=== PATIENT | male | born 1955 | race American Indian/Alaskan Native ===

== ENCOUNTER 2018-01-16 11:13 | Emergency (ER) | payer MEDICAID ==
[2018-01-16 11:33] VITALS: BP 120/86
[2018-01-16 12:51] LABS: Basophils % (Auto) 0.6 % (0.0-1.8); Eosinophils # (Auto) 0.1 K/mm3 (0.0-0.4); Eosinophils % (Auto) 0.8 % (0.0-4.3); Hematocrit 57.1 % (35.5-45.6); Lymphocytes # (Auto) 1.5 K/mm3 (1.2-5.4); Lymphocytes % (Auto) 18.1 % (13.4-35.0); Mean Corpuscular HGB Conc 33 % (32-34); Mean Corpuscular Hemoglobin 32 pg (28-32); Mean Corpuscular Volume 97 fl (84-94); Monocytes # (Auto) 0.6 K/mm3 (0.0-0.8); Monocytes % (Auto) 7.1 % (0.0-7.3); Platelet Count 468 K/mm3 (140-440); Red Cell Distribution Width 14.3 % (13.2-15.2)
[2018-01-16 13:28] LABS: BUN/Creatinine Ratio 12; Blood Urea Nitrogen 13 mg/dL (9-20); Calcium 10.5 mg/dL (8.4-10.2); Hemolysis Index 178
--- NOTE | 2018-01-16 14:43 | XRay Report ---
FINAL REPORT PROCEDURE: XR CHEST ROUTINE 2V TECHNIQUE: PA and lateral chest radiographs were obtained. CPT 33199 HISTORY: sob COMPARISON: No prior studies are available for comparison. FINDINGS: Heart: Normal. Mediastinum/Vessels: Prominent left hilum may be related to vascular prominence or adenopathy. Lungs/Pleural space: No infiltrate, effusion, or pneumothorax. Bony thorax: No acute osseous abnormality. Other: IMPRESSION: Prominent left hilum may be related to vascular prominence or adenopathy. No pulmonary infiltrates are seen.
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
== END 2018-01-16 15:28 | disposition home or self-care (01) ==
LOC: ED 11:13
DX: J20.9 Acute bronchitis, unspecified (principal); J44.9 Chronic obstructive pulmonary disease, unspecified; E11.9 Type 2 diabetes mellitus without complications; F17.200 Nicotine dependence, unspecified, uncomplicated
CPT/HCPCS: 36415; 71046; 80048; 84484; 85025; 93005; 93010; 99284

== ENCOUNTER 2020-08-19 02:09 | Emergency (ER) | payer MEDICARE ==
--- NOTE | 2020-08-19 02:27 | Event Note ---
ED Screening Note Date of service: 08/19/20 Time: :26 ED Screening Note: Patient complains of shortness of breath, headache, and generalized body aches x2 days History of COPD Denies chest pain Left-sided rhonchi noted on exam without wheezing Heart rate noted to be 116 with a pulse ox of 93% on room air This initial assessment/diagnostic orders/clinical plan/treatment(s) is/are subject to change based on patients health status, clinical progression and re- assessment by fellow clinical providers in the ED. Further treatment and workup at subsequent clinical providers discretion. Patient/guardian urged not to elope from the ED as their condition may be serious if not clinically assessed and managed. Initial orders include: Labs EKG Chest x-ray
[2020-08-19] MEDS ORDERED: ALBUTEROL 2.5 MG/3 ML NEBU IH ONE (03:03)
[2020-08-19] MEDS ORDERED: IPRATROPIUM 0.02% NEBU 2.5 ML IH ONE (03:03)
[2020-08-19 03:12] LABS: Basophils % (Auto) 0.2 % (0.0-1.8); Eosinophils % (Auto) 0.1 % (0.0-4.3); Hematocrit 52.2 % (35.5-45.6); Lymphocytes # (Auto) 1.1 K/mm3 (1.2-5.4); Lymphocytes % (Auto) 5.5 % (13.4-35.0); Mean Corpuscular HGB Conc 34 % (32-34); Mean Corpuscular Volume 96 fl (84-94); Monocytes # (Auto) 1.2 K/mm3 (0.0-0.8); Monocytes % (Auto) 5.9 % (0.0-7.3); Platelet Count 263 K/mm3 (140-440); Red Blood Count 5.46 M/mm3 (3.65-5.03); Red Cell Distribution Width 14.1 % (13.2-15.2)
--- NOTE | 2020-08-19 03:32 | XRay Report ---
CHEST 2 VIEWS INDICATION / CLINICAL INFORMATION: shortness of breath. COMPARISON: 01/16/2018 FINDINGS: SUPPORT DEVICES: None. HEART / MEDIASTINUM: No significant abnormality. LUNGS / PLEURA: Moderate emphysema again noted. No significant pulmonary or pleural abnormality. No p neumothorax. ADDITIONAL FINDINGS: No significant additional findings. IMPRESSION: 1. No acute findings. Signer Name: Julian Diaz MD Signed: 08/19/2020 3:28 AM Workstation Name: [id number]
[2020-08-19 03:33] LABS: Alanine Aminotransferase 14 units/L (7-56); BUN/Creatinine Ratio 15; Blood Urea Nitrogen 18 mg/dL (9-20); Calcium 10.4 mg/dL (8.4-10.2); Hemolysis Index 6
[2020-08-19 04:02] VITALS: BP 138/81
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
--- NOTE | 2020-08-19 05:17 | Cat Scan Report ---
CTA CHEST WITH IV CONTRAST INDICATION: sob. TECHNIQUE: Axial CT images were obtained through the chest after injection of 100 cc IV contrast. 3 plane MIP re constructions were produced. All CT scans at this location are performed using CT dose reduction for ALARA by means of automated exposure control. COMPARISON: None available. FINDINGS: Respiratory motion artifact PULMONARY ARTERIES: No pulmonary emboli. THORACIC AORTA: No acute abnormality. HEART: Normal. CORONARY ARTERIES: No significant calcification. PLEURA: No pleural effusion. No pneumothorax. LYMPH NODES: No significant adenopathy. LUNGS: Extensive destructive bullous emphysema No acute air space or interstitial disease. ADDITIONAL FINDINGS: None. UPPER ABDOMEN: No acute findings. SKELETAL STRUCTURES: No significant osseous abnormality. IMPRESSION: 1. No CT evidence for pulmonary embolism. 2. Severe destructive bullous emphysema Signer Name: Julian Diaz MD Signed: 08/19/2020 5:12 AM Workstation Name: [id number]
[2020-08-19 05:20] LABS: Bacteria,Urine 1+ /HPF (Negative); Bilirubin,Urine NEG (Negative); Blood,Urine LG (Negative); Color,Urine Yellow (Yellow); Mucus,Urine 1+ /HPF
[2020-08-19 05:24] LABS: RBC,Urine > 182.0 /HPF (0.0-6.0); WBC,Urine > 182.0 /HPF (0.0-6.0)
== END 2020-08-19 05:41 | disposition home or self-care (01) ==
LOC: ED 02:09
DX: J44.1 Chronic obstructive pulmonary disease with (acute) exacerbation (principal); N39.0 Urinary tract infection, site not specified; E11.9 Type 2 diabetes mellitus without complications; F17.200 Nicotine dependence, unspecified, uncomplicated; Z98.890 Other specified postprocedural states; Z79.899 Other long term (current) drug therapy
CPT/HCPCS: 36415; 71046; 71275; 80053; 81001; 82140; 83880; 84484; 85025; 93005; 94640; 99284; Q9967; 94644

== ENCOUNTER 2021-01-10 20:43 | Inpatient (IN) | payer MEDICARE ==
[2021-01-10] MEDS ORDERED: ALBUTEROL 2.5 MG/3 ML NEBU IH ONE (21:49)
[2021-01-10] MEDS ORDERED: IPRATROPIUM 0.02% NEBU 2.5 ML IH ONE (21:49)
[2021-01-10] MEDS ORDERED: MAGNESIUM SULFATE 2 GM/50 ML BAG IV ONE (21:49)
[2021-01-10] MEDS ORDERED: dexAMETHasone 4 MG/ML VIAL IV ONE (21:50)
[2021-01-10] MEDS ORDERED: AZITHROMYCIN/NS 500 MG/250 ML 500 MG/250 ML BAG IV ONE (21:50)
[2021-01-10] MEDS ORDERED: cefTRIAXone/NS 2 GM/100 ML 2 GM/100 ML BAG IV ONE (21:50)
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
--- NOTE | 2021-01-10 22:33 | XRay Report ---
XR chest 1V ap INDICATION / CLINICAL INFORMATION: Dyspnea. COMPARISON: 08/19/2020 FINDINGS: SUPPORT DEVICES: None. HEART /PULMONARY VASCULATURE: No significant abnormality. LUNGS / PLEURA: Lungs are hyperexpanded but clear. No pneumothorax. ADDITIONAL FINDINGS: No significant additional findings. IMPRESSION: 1. No acute findings. Signer Name: Alex Mckinney MD Signed: 01/10/2021 10:29 PM Workstation Name: [id number]
[2021-01-10 23:03] LABS: Basophils % (Auto) 0.3 % (0.0-1.8); Eosinophils # (Auto) 0.1 K/mm3 (0.0-0.4); Eosinophils % (Auto) 0.9 % (0.0-4.3); Hematocrit 52.7 % (35.5-45.6); Hemoglobin 17.8 gm/dl (11.8-15.2); Lymphocytes % (Auto) 12.5 % (13.4-35.0); Mean Corpuscular HGB Conc 34 % (32-34); Mean Corpuscular Volume 97 fl (84-94); Monocytes # (Auto) 0.5 K/mm3 (0.0-0.8); Platelet Count 244 K/mm3 (140-440); Red Blood Count 5.43 M/mm3 (3.65-5.03); Red Cell Distribution Width 14.8 % (13.2-15.2)
[2021-01-10 23:12] LABS: INR 0.94 (0.87-1.13)
[2021-01-10 23:13] LABS: Partial Thromboplastin Time 31.7 Sec. (24.2-36.6)
[2021-01-11] MEDS ORDERED: SENNOSIDES 8.6 MG TAB PO PRN (00:16)
[2021-01-11] MEDS ORDERED: ACETAMINOPHEN 325 MG TAB PO PRN (00:16)
[2021-01-11] MEDS ORDERED: MAGNESIUM HYDROXIDE (MOM) ORAL LIQD UDC PO PRN (00:16)
[2021-01-11] MEDS ORDERED: ONDANSETRON 4 MG/2 ML INJ IV PRN (00:16)
[2021-01-11] MEDS ORDERED: ALUM-MAG HYDROXIDE-SIMETHICONE 200-200-20MG/5ML ORAL LIQD 30 ML PO PRN (00:16)
--- NOTE | 2021-01-11 00:27 | History and Physical Report ---
History of Present Illness Date of examination: 01/10/21 Date of admission: 01/10/21 Chief complaint: COPD exacerbation History of present illness: Patient is a 66-year-old male who presents emergency room with complaints of shortness of breath, cough and fever. Patient states his symptoms been going on for 3 days. Patient states symptoms are worsening. Patient dates he has a history of COPD. Patient having difficulty breathing. Patient states his shortness of breath and cough are better with rest and worse with exertion. Patient states he has not been vaccinated for COVID-19. Patient denies chest pain. Patient denies abdominal pain. Patient denies nausea vomiting. ED work-up WBC 7.7, platelets 244, hemoglobin 17.8, D-dimer 210, potassium 140, potassium 4.1, creatinine 1.0, hemoglobin 5.9, serum glucose 81, ferritin 204, protein 7.2. Patient seen in ED at bedside patient alert oriented x3. Patient came with respiratory failure requiring oxygen. Patient is on Vapotherm at 35%Oxygen saturation on the monitor at 95 to 98%. Patient admits tobacco use but denies alcohol and drug use. Past History Past Medical History: COPD, hypertension Past Surgical History: No surgical history Social history: lives with family Family history: no significant family history Medications and Allergies Allergies Allergy/AdvReac Type Severity Reaction Status Date / Time No Known Allergies Allergy Verified 01/10/21 21:19 Home Medications Medication Instructions Recorded Confirmed Last Taken Type Albuterol Sulfate [Ventolin HFA] 2 puff IH Q4H PRN 02/02/15 02/02/15 02/02/15 History 2 Levalbuterol Tartrate [Xopenex Hfa] 2 puff IH Q6HR PRN #1 hfa.aer.ad 05/08/15 Unknown Rx Mometasone Furoate [Nasonex] 2 spray NS QDAY 14 Days bottle 05/08/15 Unknown Rx Promethazine Dm (Nf) [Phenergan Dm 5 ml PO Q6H PRN 14 Days 05/08/15 Unknown Rx 6.25/15 mg 5 ml] Benzonatate [Tessalon Perles] 100 mg PO Q8HR #10 capsule 01/16/18 Unknown Rx DOXYCYCLINE Hyclate [Vibramycin 100 mg PO Q12HR #20 capsule 01/16/18 Unknown Rx CAP] HYDROcodone/APAP 5-325 [[place] 1 each PO Q4HR PRN #12 tablet 01/16/18 Unknown Rx 5/325] predniSONE [Deltasone] 20 mg PO QDAY #5 tab 01/16/18 Unknown Rx Albuterol Sulfate [Proventil Hfa] 2 puff IH Q4HR PRN #1 hfa.aer.ad 08/19/20 Unknown Rx Nitrofurantoin [place]/M-Cryst 100 mg PO Q12HR 7 Days #14 capsule 08/19/20 Unknown Rx [Macrobid CAP] predniSONE [Deltasone] 50 mg PO QDAY #5 tab 08/19/20 Unknown Rx Active Meds: Active Medications Acetaminophen (Acetaminophen 325 Mg Tab) 650 mg PO Q4H PRN PRN Reason: Pain MILD(1-3)/Fever >100.5/GRIFFITHS Al Hydrox/Mg Hydrox/Simethicone (Alum-Mag Hydroxide-Simethicone [phone]/5ml Oral Liqd 30 Ml) 30 ml PO Q4H PRN PRN Reason: Indigestion Albuterol (Albuterol 2.5 Mg/3 Ml Nebu) 2.5 mg IH Q3HRT PRN PRN Reason: Shortness Of Breath Magnesium Hydroxide (Magnesium Hydroxide (Mom) Oral Liqd Udc) 30 ml PO Q4H PRN PRN Reason: Constipation Ondansetron HCl (Ondansetron 4 Mg/2 Ml Inj) 4 mg IV Q8H PRN PRN Reason: Nausea And Vomiting Senna (Sennosides 8.6 Mg Tab) 8.6 mg PO Q12HR PRN PRN Reason: Constipation Sodium Chloride (Sodium Chloride 0.9% 10 Ml Flush Syringe) 10 ml IV BID MADIE Review of Systems Ears, nose, mouth and throat: no epistaxis, no bleeding gums Cardiovascular: shortness of breath Respiratory: cough, shortness of breath Gastrointestinal: no melena Integumentary: no rash, no pruritis Neurological: no head injury Psychiatric: anxiety, no suicidal ideation, no disorientation Hematologic/Lymphatic: no easy bruising, no easy bleeding Allergic/Immunologic: no urticaria Exam - Constitutional Vitals: Temp Pulse Resp BP Pulse Ox 98.3 F 92 H 35 H 179/100 97 01/10/21 21:19 01/10/21 23:16 01/10/21 23:30 01/10/21 23:30 01/10/21 23:30 General appearance: Present: mild distress, well-nourished - EENT Eyes: Present: PERRL ENT: hearing intact, clear oral mucosa - Neck Neck: Present: supple, normal ROM - Respiratory Respiratory effort: normal Respiratory: bilateral: diminished - Cardiovascular Heart Sounds: Present: S1 & S2. Absent: rub, click - Extremities Extremities: pulses symmetrical, No edema Peripheral Pulses: within normal limits - Abdominal General gastrointestinal: Present: soft, non-tender, non-distended, normal bowel sounds Male genitourinary: Present: normal - Integumentary Integumentary: Present: clear, warm, dry - Musculoskeletal Musculoskeletal: gait normal, strength equal bilaterally - Psychiatric Psychiatric: appropriate mood/affect, intact judgment & insight - Neurologic Neurologic: CNII-XII intact, moves all extremities - Allied Health Allied health notes reviewed: nursing HEART Score - HEART Score Troponin: Troponin T < 0.010 ng/mL (0.00-0.029) 01/10/21 22:27 Results - Labs CBC & Chem 7: 01/10/21 22:27 01/10/21 22:27 Labs: Abnormal lab results 01/10/21 Range/Units 22:27 RBC 5.43 H (3.65-5.03) M/mm3 Hgb 17.8 H (11.8-15.2) gm/dl Hct 52.7 H (35.5-45.6) % MCV 97 H (84-94) fl MCH 33 H (28-32) pg Lymph % (Auto) 12.5 L (13.4-35.0) % Lymph # (Auto) 1.0 L (1.2-5.4) K/mm3 Seg Neutrophils % 79.3 H (40.0-70.0) % Assessment and Plan - Patient Problems (1) COPD exacerbation Current Visit: Yes Status: Acute Plan to address problem: Continue oxygen supplement plant supervisor consult ABG and chest x-rays-no acute finding (2) Person under investigation for COVID-19 Current Visit: Yes Status: Acute Plan to address problem: continue air borne and contact isolation Check inflammatory [id number] Continue respiratory care -vapor therm Empiric oral abx (3) Respiratory failure with hypoxia Current Visit: Yes Status: Acute Plan to address problem: Patternmaker Metal Bench consult Bronchodilators and oxygen supplement (4) Tobacco abuse Current Visit: Yes Status: Acute Plan to address problem: Discussed tobacco use cessation cardiovascular and neoplasm syndrome of tobacco use explained to patient (5) DVT prophylaxis Current Visit: Yes Status: Acute Plan to address problem: Lovenox
[2021-01-11] MEDS ORDERED: traZODone 50 MG TAB PO PRN (00:30)
[2021-01-11] MEDS ORDERED: traMADol 50 MG TAB PO PRN (00:30)
[2021-01-11 02:08] LABS: Alanine Aminotransferase 11 units/L (7-56); Albumin 4.4 g/dL (3.9-5); BUN/Creatinine Ratio 9; Blood Urea Nitrogen 9 mg/dL (9-20); Hemolysis Index 10
[2021-01-11 02:14] LABS: C-Reactive Protein 0.8 mg/dL (0.00-1.30)
[2021-01-11] MEDS: ENOXAPARIN 40 MG/0.4 ML INJ SUB-Q SCH (09:38)
[2021-01-11] MEDS ORDERED: levoFLOXacin 500 MG TAB PO SCH (10:00)
--- NOTE | 2021-01-11 15:50 | Progress Note ---
Assessment and Plan --Acute COPD exacerbation Continue oxygen supplement missile technician consulted ABG and chest x-rays-no acute finding Continue scheduled nebulizer breathing treatment, empiric steroid and empiric antibiotics -- Person under investigation for COVID-19 Covid test is negative today --Acute respiratory failure with hypoxia Likely from COPD exacerbation Consumer Recruiter consulted Continue bronchodilators and oxygen supplement -- Tobacco abuse Discussed tobacco use cessation cardiovascular and neoplasm syndrome of tobacco use explained to patient -- DVT prophylaxis Lovenox Daily clinical course: 01/11/21: negative for COVID. remains on high flow. Wean off O2 as tolerated. Continue nebulizer breathing treatment and empiric steroid. Subjective Date of service: 01/11/21 Interval history: Patient seen and examined. Medical records and medication list reviewed. No acute event overnight noted by the RN. Patient complains of cough and shortness of breath. Patient is tolerating diet. Patient remains on high flow O2 Discussed plan of care at bedside with patient. Objective - Exam Narrative Exam: GENERAL: well-developed elderly -[place] male lying on bed appeared to be in no discomfort. HEENT: Normocephalic. Atraumatic. No conjunctival congestion or icterus. Patient has moist mucous membranes. NECK: Supple. Trachea midline. CHEST/LUNGS: Patient on high flow O2, coarse breath sounds bilaterally HEART/CARDIOVASCULAR: Regular in rate and rhythm. S1 and S2 positive. ABDOMEN: Abdomen is soft, nontender. Patient has normal bowel sounds. SKIN: There is no rash. Warm and dry. NEURO: No focal motor deficit. Follows command. MUSCULOSKELETAL: No joint effusion or tenderness. EXTRIMITY: No edema, no cyanosis or clubbing. PSYCH: Cooperative. - Constitutional Vitals: Vital Signs - 12hr 01/11/21 01/11/21 01/11/21 04:29 08:09 11:15 Temperature 97.8 F Pulse Rate 91 H Respiratory 20 Rate Blood Pressure 124/67 O2 Sat by Pulse 99 98 Oximetry 01/11/21 11:16 Temperature Pulse Rate 87 Respiratory Rate Blood Pressure O2 Sat by Pulse 98 Oximetry - Labs CBC & Chem 7: 01/12/21 06:38 01/10/21 22:27 Labs: Abnormal lab results 01/10/21 Range/Units 22:27 RBC 5.43 H (3.65-5.03) M/mm3 Hgb 17.8 H (11.8-15.2) gm/dl Hct 52.7 H (35.5-45.6) % MCV 97 H (84-94) fl MCH 33 H (28-32) pg Lymph % (Auto) 12.5 L (13.4-35.0) % Lymph # (Auto) 1.0 L (1.2-5.4) K/mm3 Seg Neutrophils % 79.3 H (40.0-70.0) % HEART Score - HEART Score Troponin: Troponin T < 0.010 ng/mL (0.00-0.029) 01/10/21 22:27
[2021-01-11] MEDS: hydrALAZINE 20 MG/1 ML INJ IV PRN ×2 (18:10→22:08)
--- NOTE | 2021-01-11 21:02 | Consultation ---
History of Present Illness Consult date: 01/11/21 Requesting physician: KALEB BAHENA Reason for consult: dyspnea History of present illness: Pt. admitted with SOB and wheezing, hypoxia. Denies fevers, chills, chest pain, cough, sputum, hemoptysis. Poor historian. Taking O2 off during interview and states he is ready to go home. Active Medications Acetaminophen (Acetaminophen 325 Mg Tab) 650 mg PO Q4H PRN PRN Reason: Pain MILD(1-3)/Fever >100.5/GRIFFITHS Al Hydrox/Mg Hydrox/Simethicone (Alum-Mag Hydroxide-Simethicone [phone]/5ml Oral Liqd 30 Ml) 30 ml PO Q4H PRN PRN Reason: Indigestion Albuterol (Albuterol 2.5 Mg/3 Ml Nebu) 2.5 mg IH Q3HRT PRN PRN Reason: Shortness Of Breath Enoxaparin Sodium (Enoxaparin 40 Mg/0.4 Ml Inj) 40 mg SUB-Q QDAY [facility]; Protocol Last Admin: 01/11/21 09:38 Dose: 40 mg Documented by: Hydralazine HCl (Hydralazine 20 Mg/1 Ml Inj) 5 mg IV Q4HR PRN PRN Reason: Hypertension Last Admin: 01/11/21 18:10 Dose: 5 mg Documented by: Levofloxacin/Dextrose (Levaquin 750mg/150ml) 750 mg in 150 mls @ 100 mls/hr IV Q24H [facility]; Protocol Magnesium Hydroxide (Magnesium Hydroxide (Mom) Oral Liqd Udc) 30 ml PO Q4H PRN PRN Reason: Constipation Ondansetron HCl (Ondansetron 4 Mg/2 Ml Inj) 4 mg IV Q8H PRN PRN Reason: Nausea And Vomiting Prednisone (Prednisone 20 Mg Tab) 40 mg PO QDAY [facility] Senna (Sennosides 8.6 Mg Tab) 8.6 mg PO Q12HR PRN PRN Reason: Constipation Sodium Chloride (Sodium Chloride 0.9% 10 Ml Flush Syringe) 10 ml IV BID [facility] Last Admin: 01/11/21 09:45 Dose: 10 ml Documented by: Tramadol HCl (Tramadol 50 Mg Tab) 50 mg PO Q6H PRN PRN Reason: Pain, Moderate (4-6) Last Admin: 01/11/21 18:09 Dose: 50 mg Documented by: Trazodone HCl (Trazodone 50 Mg Tab) 50 mg PO QHS PRN PRN Reason: Insomnia Past History Past Medical History: COPD, hypertension Past Surgical History: No surgical history Social history: lives with family, smoking, full code. denies: alcohol abuse, prescription drug abuse, IV drug use Family history: no significant family history Medications and Allergies Allergies Allergy/AdvReac Type Severity Reaction Status Date / Time No Known Allergies Allergy Verified 01/10/21 21:19 Home Medications Medication Instructions Recorded Confirmed Last Taken Type Albuterol Sulfate [Ventolin HFA] 2 puff IH Q4H PRN 02/02/15 02/02/15 02/02/15 History 2 Levalbuterol Tartrate [Xopenex Hfa] 2 puff IH Q6HR PRN #1 hfa.aer.ad 05/08/15 Unknown Rx Mometasone Furoate [Nasonex] 2 spray NS QDAY 14 Days bottle 05/08/15 Unknown Rx Promethazine Dm (Nf) [Phenergan Dm 5 ml PO Q6H PRN 14 Days 05/08/15 Unknown Rx 6.25/15 mg 5 ml] Benzonatate [Tessalon Perles] 100 mg PO Q8HR #10 capsule 01/16/18 Unknown Rx DOXYCYCLINE Hyclate [Vibramycin 100 mg PO Q12HR #20 capsule 01/16/18 Unknown Rx CAP] HYDROcodone/APAP 5-325 [[place] 1 each PO Q4HR PRN #12 tablet 01/16/18 Unknown Rx 5/325] predniSONE [Deltasone] 20 mg PO QDAY #5 tab 01/16/18 Unknown Rx Albuterol Sulfate [Proventil Hfa] 2 puff IH Q4HR PRN #1 hfa.aer.ad 08/19/20 Unknown Rx Nitrofurantoin Luce/M-Cryst 100 mg PO Q12HR 7 Days #14 capsule 08/19/20 Unknown Rx [Macrobid CAP] predniSONE [Deltasone] 50 mg PO QDAY #5 tab 08/19/20 Unknown Rx Active Meds: Active Medications Acetaminophen (Acetaminophen 325 Mg Tab) 650 mg PO Q4H PRN PRN Reason: Pain MILD(1-3)/Fever >100.5/[place] Al Hydrox/Mg Hydrox/Simethicone (Alum-Mag Hydroxide-Simethicone [phone]/5ml Oral Liqd 30 Ml) 30 ml PO Q4H PRN PRN Reason: Indigestion Albuterol (Albuterol 2.5 Mg/3 Ml Nebu) 2.5 mg IH Q3HRT PRN PRN Reason: Shortness Of Breath Enoxaparin Sodium (Enoxaparin 40 Mg/0.4 Ml Inj) 40 mg SUB-Q QDAY [facility]; Protocol Last Admin: 01/11/21 09:38 Dose: 40 mg Documented by: Hydralazine HCl (Hydralazine 20 Mg/1 Ml Inj) 5 mg IV Q4HR PRN PRN Reason: Hypertension Last Admin: 01/11/21 18:10 Dose: 5 mg Documented by: Levofloxacin/Dextrose (Levaquin 750mg/150ml) 750 mg in 150 mls @ 100 mls/hr IV Q24H [facility]; Protocol Magnesium Hydroxide (Magnesium Hydroxide (Mom) Oral Liqd Udc) 30 ml PO Q4H PRN PRN Reason: Constipation Ondansetron HCl (Ondansetron 4 Mg/2 Ml Inj) 4 mg IV Q8H PRN PRN Reason: Nausea And Vomiting Prednisone (Prednisone 20 Mg Tab) 40 mg PO QDAY [facility] Senna (Sennosides 8.6 Mg Tab) 8.6 mg PO Q12HR PRN PRN Reason: Constipation Sodium Chloride (Sodium Chloride 0.9% 10 Ml Flush Syringe) 10 ml IV BID [facility] Last Admin: 01/11/21 09:45 Dose: 10 ml Documented by: Tramadol HCl (Tramadol 50 Mg Tab) 50 mg PO Q6H PRN PRN Reason: Pain, Moderate (4-6) Last Admin: 01/11/21 18:09 Dose: 50 mg Documented by: Trazodone HCl (Trazodone 50 Mg Tab) 50 mg PO QHS PRN PRN Reason: Insomnia Review of Systems All systems: negative Physical Examination Vital signs: Vital Signs Temp Pulse Resp BP Pulse Ox 98.3 F 101 H 26 H 160/95 96 01/10/21 21:19 01/10/21 21:19 01/10/21 21:19 01/10/21 21:19 01/10/21 21:19 General appearance: no acute distress, alert Eyes: non-icteric ENT: oropharynx moist Neck: supple Effort: normal Ascultation: Bilateral: diminished breath sounds Cardiovascular: regular rate and rhythm (no mrg) Gastrointestinal: normoactive bowel sounds, soft, non-tender, non-distended Integumentary: normal Extremities: no cyanosis, no edema Musculoskeletal: no deformities normal mental status, non-focal exam, pupils equal and round mood appropriate, affect normal Results - Laboratory Findings CBC and BMP: 01/10/21 22:27 01/10/21 22:27 PT/INR, D-dimer PT 13.1 Sec. (12.2-14.9) 01/10/21 22: INR 0.94 (0.87-1.13) 01/10/21 22: D-Dimer 210.06 ng/mlDDU (0-234) 01/10/21 22:27 Abnormal lab findings: Abnormal Labs 01/10/21 22:27 RBC 5.43 H Hgb 17.8 H Hct 52.7 H MCV 97 H MCH 33 H Lymph % (Auto) 12.5 L Lymph # (Auto) 1.0 L Seg Neutrophils % 79.3 H - Diagnostic Findings Chest x-ray: report reviewed, image reviewed CT scan - chest: report reviewed, image reviewed Assessment and Plan Imp: 1. Centrilobular/bullous emphysema 2. COPD exac. 3. Acute respiratory failure, hypoxia 4. Polycythemia 5. Chronic nicotine dependence, cigarettes Rec: 1. Finish 5 days of ABX and 5 days of Prednisone 40mg daily 2. Try changing to low-flow nasal cannula; likely needs home O2 3. Stop smoking, counseled 4. Needs to be under the care of a career services director as an outpatient Plan of care reviewed w/ patient, he understands/agrees Thanks for the consult.
[2021-01-11] MEDS: predniSONE 20 MG TAB PO SCH (21:22)
[2021-01-12 07:41] LABS: Basophils # (Auto) 0.1 K/mm3 (0.0-0.1); Basophils % (Auto) 0.6 % (0.0-1.8); Hemoglobin 18.2 gm/dl (11.8-15.2); Lymphocytes # (Auto) 0.9 K/mm3 (1.2-5.4); Lymphocytes % (Auto) 9.4 % (13.4-35.0); Mean Corpuscular HGB Conc 34 % (32-34); Mean Corpuscular Volume 96 fl (84-94); Monocytes # (Auto) 0.4 K/mm3 (0.0-0.8); Monocytes % (Auto) 3.9 % (0.0-7.3); Platelet Count 294 K/mm3 (140-440); Red Blood Count 5.61 M/mm3 (3.65-5.03); Red Cell Distribution Width 15.1 % (13.2-15.2)
[2021-01-12] MEDS: ALBUTEROL 2.5 MG/3 ML NEBU IH PRN (08:43)
[2021-01-12] MEDS: ENOXAPARIN 40 MG/0.4 ML INJ SUB-Q SCH (09:19)
[2021-01-12] MEDS: predniSONE 20 MG TAB PO SCH (09:19)
--- NOTE | 2021-01-12 15:52 | Progress Note ---
Assessment and Plan --Acute COPD exacerbation Continue oxygen supplement composition mixer consulted ABG and chest x-rays-no acute finding Continue scheduled nebulizer breathing treatment, empiric steroid and empiric antibiotics -- Person under investigation for COVID-19 Covid test is negative --Acute respiratory failure with hypoxia Likely from COPD exacerbation Journeyman Glazier consulted Continue bronchodilators and oxygen supplement -- Tobacco abuse Discussed tobacco use cessation cardiovascular and neoplasm syndrome of tobacco use explained to patient -- DVT prophylaxis Lovenox Daily clinical course: 01/11/21: negative for COVID. remains on high flow. Wean off O2 as tolerated. Continue nebulizer breathing treatment and empiric steroid. 01/12/21: pt on 3L n/c today, feeling better. Continue empiric steroid and nebul izer breathing treatment. Will assess for home O2 requirement Subjective Date of service: 01/12/21 Interval history: Patient seen and examined. Medical records and medication list reviewed. No acute event overnight noted by the RN. Patient complains of cough and shortness of breath. Patient is tolerating diet. Patient 3 L nasal cannula O2 today Discussed plan of care at bedside with patient. Objective - Exam Narrative Exam: GENERAL: well-developed elderly -Swazi male lying on bed appeared to be in no discomfort. HEENT: Normocephalic. Atraumatic. No conjunctival congestion or icterus. Patient has moist mucous membranes. NECK: Supple. Trachea midline. CHEST/LUNGS: Patient on high flow O2, coarse breath sounds bilaterally HEART/CARDIOVASCULAR: Regular in rate and rhythm. S1 and S2 positive. ABDOMEN: Abdomen is soft, nontender. Patient has normal bowel sounds. SKIN: There is no rash. Warm and dry. NEURO: No focal motor deficit. Follows command. MUSCULOSKELETAL: No joint effusion or tenderness. EXTRIMITY: No edema, no cyanosis or clubbing. PSYCH: Cooperative. - Constitutional Vitals: Vital Signs - 12hr 01/12/21 01/12/21 01/12/21 05:19 08:43 08:47 Temperature 97.8 F Pulse Rate 94 H Pulse Rate [ 93 H Bilateral] Respiratory 20 Rate Respiratory 16 Rate [Bilateral ] Blood Pressure 127/73 O2 Sat by Pulse 94 93 Oximetry 01/12/21 13:08 Temperature 98.0 F Pulse Rate 92 H Pulse Rate [ Bilateral] Respiratory 18 Rate Respiratory Rate [Bilateral ] Blood Pressure 118/70 O2 Sat by Pulse 90 Oximetry - Labs CBC & Chem 7: 01/12/21 06:38 01/10/21 22:27 Labs: Abnormal lab results 01/12/21 Range/Units 06:38 RBC 5.61 H (3.65-5.03) M/mm3 Hgb 18.2 H (11.8-15.2) gm/dl Hct 54.0 H (35.5-45.6) % MCV 96 H (84-94) fl MCH 33 H (28-32) pg Lymph % (Auto) 9.4 L (13.4-35.0) % Lymph # (Auto) 0.9 L (1.2-5.4) K/mm3 Seg Neutrophils % 86.1 H (40.0-70.0) % Seg Neutrophils # 7.8 H (1.8-7.7) K/mm3 HEART Score - HEART Score Troponin: Troponin T < 0.010 ng/mL (0.00-0.029) 01/10/21 22:27
--- NOTE | 2021-01-12 19:34 | Progress Note ---
Assessment and Plan Imp: 1. Centrilobular/bullous emphysema 2. COPD exac. 3. Acute respiratory failure, hypoxia 4. Polycythemia 5. Chronic nicotine dependence, cigarettes Rec: 1. Finish 5 days of ABX and 5 days of Prednisone 40mg daily 2. Home O2 eval. needed 3. Stop smoking, counseled 4. Needs to be under the care of a retail coverage merchandiser lead as an outpatient Plan of care reviewed w/ patient, he understands/agrees. Subjective Date of service: 01/12/21 Principal diagnosis: COPD exac. Interval history: No events. Awake, alert. Now on RA. SOB better. Active Medications Acetaminophen (Acetaminophen 325 Mg Tab) 650 mg PO Q4H PRN PRN Reason: Pain MILD(1-3)/Fever >100.5/[place] Al Hydrox/Mg Hydrox/Simethicone (Alum-Mag Hydroxide-Simethicone [phone]/5ml Oral Liqd 30 Ml) 30 ml PO Q4H PRN PRN Reason: Indigestion Albuterol (Albuterol 2.5 Mg/3 Ml Nebu) 2.5 mg IH Q3HRT PRN PRN Reason: Shortness Of Breath Last Admin: 01/12/21 08:43 Dose: 2.5 mg Documented by: Enoxaparin Sodium (Enoxaparin 40 Mg/0.4 Ml Inj) 40 mg SUB-Q QDAY [facility]; Protocol Last Admin: 01/12/21 09:19 Dose: 40 mg Documented by: Hydralazine HCl (Hydralazine 20 Mg/1 Ml Inj) 5 mg IV Q4HR PRN PRN Reason: Hypertension Last Admin: 01/11/21 22:08 Dose: 5 mg Documented by: Levofloxacin (Levofloxacin 750 Mg Tab) 750 mg PO Q24HR [facility]; Protocol Stop: 01/16/21 10:01 Magnesium Hydroxide (Magnesium Hydroxide (Mom) Oral Liqd Udc) 30 ml PO Q4H PRN PRN Reason: Constipation Ondansetron HCl (Ondansetron 4 Mg/2 Ml Inj) 4 mg IV Q8H PRN PRN Reason: Nausea And Vomiting Prednisone (Prednisone 20 Mg Tab) 40 mg PO QDAY [facility] Last Admin: 01/12/21 09:19 Dose: 40 mg Documented by: Senna (Sennosides 8.6 Mg Tab) 8.6 mg PO Q12HR PRN PRN Reason: Constipation Sodium Chloride (Sodium Chloride 0.9% 10 Ml Flush Syringe) 10 ml IV BID [facility] Last Admin: 01/12/21 09:20 Dose: 10 ml Documented by: Tramadol HCl (Tramadol 50 Mg Tab) 50 mg PO Q6H PRN PRN Reason: Pain, Moderate (4-6) Last Admin: 01/11/21 18:09 Dose: 50 mg Documented by: Trazodone HCl (Trazodone 50 Mg Tab) 50 mg PO QHS PRN PRN Reason: Insomnia Objective Vital Signs - 12hr 01/12/21 01/12/21 01/12/21 08:43 08:47 13:08 Temperature 98.0 F Pulse Rate 92 H Pulse Rate [ 93 H Bilateral] Respiratory 18 Rate Respiratory 16 Rate [Bilateral ] Blood Pressure 118/70 O2 Sat by Pulse 93 90 Oximetry 01/12/21 01/12/21 16:27 18:19 Temperature 98.3 F Pulse Rate 82 Pulse Rate [ Bilateral] Respiratory 20 Rate Respiratory Rate [Bilateral ] Blood Pressure 125/70 O2 Sat by Pulse 90 93 Oximetry Constitutional: no acute distress, alert Eyes: non-icteric ENT: oropharynx moist Neck: supple Effort: normal Ascultation: Bilateral: diminished breath sounds Cardiovascular: regular rate and rhythm (no mrg) Gastrointestinal: normoactive bowel sounds, soft, non-tender, non-distended Integumentary: normal Extremities: no cyanosis, no edema Neurologic: normal mental status, non-focal exam, pupils equal and round Psychiatric: mood appropriate, affect normal CBC and BMP: 01/12/21 06:38 01/10/21 22:27 ABG, PT/INR, D-dimer: PT/INR, D-dimer PT 13.1 Sec. (12.2-14.9) 01/10/21 22:27 INR 0.94 (0.87-1.13) 01/10/21 22:27 D-Dimer 210.06 ng/mlDDU (0-234) 01/10/21 22:27 Abnormal lab findings: Abnormal Labs 01/10/21 01/12/21 22:27 06:38 RBC 5.43 H 5.61 H Hgb 17.8 H 18.2 H Hct 52.7 H 54.0 H MCV 97 H 96 H MCH 33 H 33 H Lymph % (Auto) 12.5 L 9.4 L Lymph # (Auto) 1.0 L 0.9 L Seg Neutrophils % 79.3 H 86.1 H Seg Neutrophils # 7.8 H Chest x-ray: report reviewed, image reviewed
[2021-01-13] MEDS: ALBUTEROL 2.5 MG/3 ML NEBU IH PRN (08:12)
[2021-01-13] MEDS: predniSONE 20 MG TAB PO SCH (09:32)
[2021-01-13] MEDS: ENOXAPARIN 40 MG/0.4 ML INJ SUB-Q SCH (09:32)
[2021-01-13] MEDS ORDERED: levoFLOXacin 750 MG TAB PO SCH (10:00)
--- NOTE | 2021-01-13 11:23 | Electrocardiograph Report ---
[facility] Test Date: 2021-01-13 Test Time: 07:58:34 Pat Name: LIANNE AVINA Department: Room: A354 Gender: M Sap Security Consultant: ISABELLA : 1955 Requested By: OLGA ELLSWORTH III Order Number: [id number] Reading MD: Carroll Cardona Measurements Intervals [place] Rate: 67 P: 79 UT: 143 QRS: -48 QRSD: 67 T: 98 QT: 386 QTc: 407 Interpretive Statements Sinus rhythm Left anterior fascicular block Nonspecific T abnormalities, lateral leads No previous ECG available for comparison Electronically Signed On 01-13-2021 11:22:56 EDT by Carroll Cardona
--- NOTE | 2021-01-13 11:41 | Progress Note ---
Assessment and Plan 66 y/o male with acute respiratory failure and COPD exacerbation. 1. Needs ambulatory walk test to assess oxygen needs 2. Agree with Prednisone taper 3. Needs to follow up outpatient for full PFT and repeat walk test. 4. No objection to discharge today. Subjective Date of service: 01/13/21 Principal diagnosis: COPD exac. Interval history: No acute events. Stable on 3 liters. Good sats. Objective Vital Signs - 12hr 01/13/21 01/13/21 01/13/21 04:49 08:12 08:13 Temperature 97.5 F L Pulse Rate 68 Pulse Rate [ 68 Bilateral] Respiratory 16 Rate Respiratory 18 Rate [Bilateral ] Blood Pressure 123/81 O2 Sat by Pulse 94 95 Oximetry Constitutional: no acute distress, alert Eyes: non-icteric ENT: oropharynx moist Neck: supple Effort: normal Ascultation: Bilateral: diminished breath sounds Cardiovascular: regular rate and rhythm (no mrg) Gastrointestinal: normoactive bowel sounds, soft, non-tender, non-distended Integumentary: normal Extremities: no cyanosis, no edema Neurologic: normal mental status, non-focal exam, pupils equal and round Psychiatric: mood appropriate, affect normal CBC and BMP: 01/12/21 06:38 01/10/21 22:27 ABG, PT/INR, D-dimer: PT/INR, D-dimer PT 13.1 Sec. (12.2-14.9) 01/10/21 22:27 INR 0.94 (0.87-1.13) 01/10/21 22:27 D-Dimer 210.06 ng/mlDDU (0-234) 01/10/21 22:27 Abnormal lab findings: Abnormal Labs 01/10/21 01/12/21 22:27 06:38 RBC 5.43 H 5.61 H Hgb 17.8 H 18.2 H Hct 52.7 H 54.0 H MCV 97 H 96 H MCH 33 H 33 H Lymph % (Auto) 12.5 L 9.4 L Lymph # (Auto) 1.0 L 0.9 L Seg Neutrophils % 79.3 H 86.1 H Seg Neutrophils # 7.8 H
--- NOTE | 2021-01-13 13:38 | Discharge Summary ---
Providers - Providers Date of Admission: 01/11/21 08:31 Date of discharge: 01/13/21 Attending physician: KALEB BAHENA 01/11/21 00:30 Consult to Physician [CONS] Routine Comment: Consulting Provider: KIMBERLY BAUTISTA Physician Instructions: Reason For Exam: COPD 01/13/21 13:12 Physical Therapy Evaluation and Treat [CONS] Stat Comment: Reason For Exam: eval and treat Primary care physician: RETRIMMER Hospitalization Condition: Critical Pertinent studies: CXR: No infiltrates Hospital course: Patient is a 66-year-old male with a history of tobacco abuse who presents emergency room with complaints of shortness of breath, cough and fever going on for 3 days. Patient states he has not been vaccinated for COVID-19. ED work-up WBC 7.7, platelets 244, hemoglobin 17.8, D-dimer 210, potassium 140, potassium 4.1, creatinine 1.0, hemoglobin 5.9, serum glucose 81, ferritin 204, protein 7.2. Patient was placed on Vapotherm at 35%Oxygen saturation on the monitor at 95 to 98%. Patient was admitted for acute respiratory failure and COPD exacerbation. Patient was admitted to medical floor with scheduled nebs, iv abx, iv steroids and supplemental O2 to keep O2 sat at 94%. CXR showed no infiltrates. Patients symptom improved with medical management. Patient was then discharged home in stable condition with outpt f/u. Patient was assessed for home O2 requirement before discharge. Discharge planning management was thoroughly discussed with the patient and he verbalized understanding. Disposition: DC-30 STILL A PATIENT Final Discharge Diagnosis (Prints w/discharge instructions): Acute COPD exacerbation. Acute hypoxic respiratory failure due to COPD exacerbation. PUI for COVID-19, ruled out. Tobacco abuse Time spent for discharge: 34 minutes Core Measure Documentation - Palliative Care Palliative Care/ Comfort Measures: Not Applicable - Core Measures Any of the following diagnoses?: none Exam - Physical Exam Narrative exam: GENERAL: well-developed elderly -[place] male lying on bed appeared to be in no discomfort. HEENT: Normocephalic. Atraumatic. No conjunctival congestion or icterus. Patient has moist mucous membranes. NECK: Supple. Trachea midline. CHEST/LUNGS: Diminished breath sounds bilaterally, no rhonchi HEART/CARDIOVASCULAR: Regular in rate and rhythm. S1 and S2 positive. ABDOMEN: Abdomen is soft, nontender. Patient has normal bowel sounds. SKIN: There is no rash. Warm and dry. NEURO: No focal motor deficit. Follows command. MUSCULOSKELETAL: No joint effusion or tenderness. EXTRIMITY: No edema, no cyanosis or clubbing. PSYCH: Cooperative. - Constitutional Vitals: Temp Pulse Resp BP Pulse Ox 98.7 F 65 18 115/77 99 01/13/21 11:31 01/13/21 11:31 01/13/21 11:31 01/13/21 11:31 01/13/21 11:31 Plan Activity: advance as tolerated Weight Bearing Status: Weight Bear as Tolerated Diet: low fat, low salt Additional Instructions: Follow-up with route sales trainee in 1 week for outpatient PFT Follow up with: PRIMARY MD COLLIN [Primary Care Provider] - 3-5 Days DEANA LERNER MD [Staff Physician] - 7 Days Prescriptions: predniSONE 10 mg PO .TAPER #21 tab Albuterol Sulfate [Proventil Hfa] 2 puff IH Q4HR PRN #1 hfa.aer.ad PRN Reason: Wheezing Budesonide/Formoterol Fumarate [Symbicort 160-4.5 Mcg Inhaler] 10.2 gm IH BID #1 hfa.aer.ad Benzonatate [Tessalon Perles] 100 mg PO Q8HR #10 capsule Azithromycin [Zithromax] 250 mg PO DAILY #3 tablet
[2021-01-13 17:44] VITALS: BP 128/71
--- NOTE | 2021-01-14 10:46 | Electrocardiograph Report ---
[facility] Test Date: 2021-01-10 Test Time: 20:58:50 Pat Name: LIANNE AVINA Department: 3A Room: A367 Gender: Male Dust Box Tender: phyllis : 1955 Requested By: Order Number: [id number] Reading MD: Carroll Cardona Measurements Intervals [place] Rate: 95 P: 55 NE: 139 QRS: 25 QRSD: 71 T: 72 QT: 360 QTc: 454 Interpretive Statements Sinus rhythm Anteroseptal infarct, age indeterminate No previous ECG available for comparison Electronically Signed On 01-14-2021 10:46:15 EDT by Carroll Cardona
== END 2021-01-13 18:40 | disposition home or self-care (01) | DRG 189 ==
LOC: ED 20:43 → 3A 01-11 00:03 → OBSVTOIN 01-11 08:31 → 3A 01-11 17:46
PROVIDERS: ADMIT Internal Medicine Geriatric Medicine; ATTEND Internal Medicine
DX: J96.01 Acute respiratory failure with hypoxia (principal); I10 Essential (primary) hypertension; D75.1 Secondary polycythemia; E11.9 Type 2 diabetes mellitus without complications; F17.210 Nicotine dependence, cigarettes, uncomplicated; Z20.822 Contact with and (suspected) exposure to COVID-19; J43.2 Centrilobular emphysema; Z79.899 Other long term (current) drug therapy; Z79.891 Long term (current) use of opiate analgesic; Z79.01 Long term (current) use of anticoagulants; Z93.3 Colostomy status
CPT/HCPCS: 36415; 71045; 80053; 82140; 82550; 82553; 82728; 82947; 82962; 83036; 83520; 83615; 84145; 84484; 85025; 85379; 85610; 85730; 86140; 93005; 94640; 94644; 96365; 96375; G0378; J0360; J0456; J0696; J1100; J1650; J1956; J3475; J7512; U0003